=== PATIENT | male | born 1955 | race Caucasian/White ===

== ENCOUNTER → 2018-04-05 | Outpatient (CLI) | payer BC ==
[~2018-04-05] MED LIST: ACHYD1T PO; NEOM28.34 TP
--- NOTE | 2018-04-05 12:28 | Diagnostic Imaging Report ---
PROCEDURE: US right lower extremity venous. TECHNIQUE: Multiple Real-time grayscale images were obtained over the right lower extremity in various projections. Additional spectral analysis and color Doppler duplex images were also obtained. INDICATION: Leg pain and swelling. COMPARISON: There are no prior studies available for comparison. FINDINGS: There is generally good blood flow and compressibility at all levels of the deep venous system. There is no evidence for deep venous thrombosis. During the course of the exam, a 7.5 x 1.8 x 5.4 cm Joseph's cyst was identified. IMPRESSION: 1. There is no evidence for deep venous thrombosis. 2. There is a sizable Joseph's cyst. Dictated by: Dictated on workstation # [id number]
== END ==
LOC: RAD 10:41
PROVIDERS: ATTEND Nurse Practitioner Family
DX: M71.21 Synovial cyst of popliteal space [Baker], right knee (principal); M79.89 Other specified soft tissue disorders

== ENCOUNTER 2019-04-18 16:57 | Emergency (ER) | payer OTHER, BC ==
[~2019-04-18] VITALS: Ht 170 cm; Wt 79.0 kg
--- NOTE | 2019-04-18 17:16 | NUR ---
B/P 143/82
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
[2019-04-18 18:31] VITALS: BP 155/84
[2019-04-18] MEDS ORDERED: METH-313 PO (18:31)
== END 2019-04-18 18:31 | disposition home or self-care (01) ==
LOC: EDUNIT# 16:57 → ER 16:58
DX: S39.012A Strain of muscle, fascia and tendon of lower back, initial encounter (principal); R40.2142 Coma scale, eyes open, spontaneous, at arrival to emergency department; R40.2252 Coma scale, best verbal response, oriented, at arrival to emergency department; R40.2362 Coma scale, best motor response, obeys commands, at arrival to emergency department; V59.50XA Passenger in pick-up truck or van injured in collision with unspecified motor vehicles in traffic accident, initial encounter; Y92.410 Unspecified street and highway as the place of occurrence of the external cause
CPT/HCPCS: 72131

== ENCOUNTER → 2019-06-08 | Outpatient (CLI) | payer OTHER, BC ==
[~2019-06-08] MED LIST changes: +METH-313 PO
--- NOTE | 2019-06-08 15:40 | Diagnostic Imaging Report ---
INDICATION: Cough and dyspnea, chest tightness. EXAMINATION: PA and lateral chest obtained at 3:29 p.m. FINDINGS: Heart and mediastinal silhouette are normal in appearance. There is no focal infiltrate, pneumothorax or pleural fluid. There is a calcified granulomata over the right upper lobe. IMPRESSION: No acute process in the chest. Dictated by: Dictated on workstation # [id number]
== END ==
LOC: RAD 15:14
PROVIDERS: ATTEND Family Medicine
DX: R05 Cough (principal); R06.00 Dyspnea, unspecified
CPT/HCPCS: 71046

== ENCOUNTER → 2019-12-22 | Outpatient (CLI) | payer BC ==
--- NOTE | 2019-12-22 10:43 | Diagnostic Imaging Report ---
Clinical indications: Patient with vision changes getting worse last 3-4 months. Patient has history of eyelids lifted. Exams: 1: Head CT without contrast with coronal and sagittal reformatted images. Auto Exposure Controls were utilized during the CT exam to meet ALARA standards for radiation dose reduction. 2: Axial CT scan of the orbits without contrast with sagittal and coronal reformatted images. Auto Exposure Controls were utilized during the CT exam to meet ALARA standards for radiation dose reduction. Comparison: None. Findings: Head CT: There are multiple small focal and patchy areas of low-attenuation white matter changes involving both cerebral hemispheres, likely representing chronic small vessel ischemic disease. There is no evidence of acute cerebral infarct, intracranial hemorrhage, brain herniation or midline shift. There is no hydrocephalus. The brain parenchymal volume appears appropriate for patient's age. There is normal garcia-white matter distinction. The basal cisterns are unremarkable. There is partially visualized amorphous calcification seen either within or lateral to the left masseter muscle. Otherwise, the extracranial soft tissue and skull are unremarkable. There is mucosal thickening involving ethmoid sinus. Orbital CT: The orbits and globes are intact. The visualized portions of the optic nerves are unremarkable. There is no gael-orbital or retrobulbar or soft tissue abnormality. Extraocular muscles with no significant abnormality. There is no gross skull base or cavernous sinus mass seen as visualized. IMPRESSION: 1: There is no evidence of acute intracranial process. There is no significant abnormality involving the optic nerves or globes or periorbital regions, as visualized. 2: Age related brain parenchymal changes. Dictated by: Dictated on workstation # [id number]
== END ==
LOC: RAD 10:15
PROVIDERS: ATTEND Family Medicine
DX: H50.21 Vertical strabismus, right eye (principal); G93.89 Other specified disorders of brain
CPT/HCPCS: 70450; 70480

== ENCOUNTER → 2020-01-17 | Outpatient (CLI) | payer BC | LOC: LABNPT 05:52 | PROVIDERS: ATTEND Orthopaedic Surgery | DX: Z01.812 Encounter for preprocedural laboratory examination (principal); Z20.828 Contact with and (suspected) exposure to other viral communicable diseases | CPT/HCPCS: 87635 ==

== ENCOUNTER → 2022-03-12 | Outpatient (CLI) | payer BC, SELFPAY ==
--- NOTE | 2022-03-12 14:24 | Diagnostic Imaging Report ---
CT coronary calcium scoring. INDICATION: Family history of heart disease. Coronary artery disease screening. TECHNIQUE: Axial high-resolution CT images were obtained through the chest with particular attention paid to the heart and coronary arteries. Images were evaluated presence and extent of coronary artery calcifications using coronary calcium quantification software. FINDINGS: There are no identifiable coronary calcifications. The patient's total coronary calcium score is 0. The patient is therefore at a very low risk of underlying hemodynamically significant coronary artery disease. Heart size is normal. The visualized portion the aorta is normal in caliber. There is no pericardial collection. Note is made of calcified hilar and subcarinal lymph nodes. The visualized portion of the lungs appear clear. The visual portion of the upper abdomen unremarkable. There is no suspicious osseous abnormality. IMPRESSION: 1. No identifiable coronary calcifications. The patient's total coronary calcium score is 0. Dictated by: Dictated on workstation # [id number]
== END ==
LOC: RAD 13:07
PROVIDERS: ATTEND Family Medicine
DX: Z82.49 Family history of ischemic heart disease and other diseases of the circulatory system (principal)
CPT/HCPCS: 75571